=== PATIENT | female | born 1970 | race Caucasian/White ===

== ENCOUNTER 2020-06-27 19:37 | Emergency (ER) | payer OTHER, SELFPAY ==
[2020-06-27 19:54] VITALS: BP 148/65; PULSE 82; RESP 18; TEMP 37.1; O2SAT 100; BMI 22.8
== END 2020-06-27 22:32 | disposition left against medical advice (07) ==
PROVIDERS: Emergency Provider Emergency Medicine
DX: N39.3 Stress incontinence (female) (male) (principal)
CPT/HCPCS: 99281

== ENCOUNTER → 2020-06-29 10:21 | Outpatient (CLI) | payer OTHER, SELFPAY ==
[2020-06-29 11:44] LABS: Add Manual Diff / Slide Review NO; Basophils Absolute Auto 0 /uL (0-100); Basophils Percent Auto 0.6 % (0-2); Eosinophils Absolute Auto 100 /uL (0-450); Hematocrit 25.7 % (36-46); Hemoglobin 8.6 g/dL (12.0-16.0); Lymphocytes Absolute Auto 1200 /uL (1100-4500); Lymphocytes Percent Auto 19.4 % (25-40); Mean Corpuscular HGB Conc 33.6 % (30-36); Mean Corpuscular Hemoglobin 32.5 PG (26-34); Mean Corpuscular Volume 96.9 fL (80-100); Monocytes Absolute Auto 500 /uL (0-900); Monocytes Percent Auto 7.6 % (3-14); Neutrophils Absolute Auto 4300 /uL (1500-7000); Neutrophils Percent Auto 71.4 % (50-75); Platelet Count 412 X10^3/uL (150-400); Red Blood Cell Count 2.65 X10^6/uL (4.0-5.2); Red Cell Distribution Width 13.6 % (11.6-14.8)
[2020-06-29 12:53] LABS: Cancer Antigen 125 19.6 U/mL (0-35)
== END ==
PROVIDERS: Referring Provider Obstetrics & Gynecology; Visit Provider Obstetrics & Gynecology
DX: D64.9 Anemia, unspecified (principal); N92.0 Excessive and frequent menstruation with regular cycle; N83.201 Unspecified ovarian cyst, right side
CPT/HCPCS: 36415; 85025; 86304

== ENCOUNTER → 2020-07-22 08:50 | Outpatient (CLI) | payer OTHER, SELFPAY ==
[2020-07-23 10:45] LABS: COVID19 Sendout Not Detected (Not Detect)
== END ==
PROVIDERS: Visit Provider Physician Assistant
DX: Z11.59 Encounter for screening for other viral diseases (principal)
CPT/HCPCS: 87635

== ENCOUNTER 2020-07-25 06:41 | Day surgery (SDC) | payer OTHER, SELFPAY ==
[2020-07-22 12:57] VITALS: BMI 22.4
[2020-07-25] VITALS (10 sets, daily range): BP systolic 108–126; BP diastolic 55–86; PULSE 75–92; RESP 11–17; TEMP 36.4–37.2; O2SAT 96–100; BMI 22.4
--- NOTE | 2020-07-25 | PATH_ITS ---
[facility] Accession Number: [id number] . 01 Material submitted: . endometrium - ENDOMETRIAL CURETTINGS . 02 Diagnosis: Endometrium, Curettings: Inactive/noncycling endometrium with small inactive glands, pseudodecidualized stroma, and intravascular thrombi, suggestive of exogenous hormone effects. No evidence of neoplasia or hyperplasia. V 07/26/2020 1602 Local . 02 Electronically signed: . Christina Villarreal MD, Pathologist NPI- [id number] . 01 Gross description: . ENDOMETRIAL CURETTINGS: Received in formalin are minute fragments of mucoid and hemorrhagic material measuring 0.6 x 0.6 x 0.3 cm in aggregate. Submitted in toto in 1 cassette. /RON 07/26/2020 0158 Local . 02 Pathologist provided ICD-10: N92.1 . 02 CPT . 904927 Performed at: 01 [facility] [address] [facility], [place], [place] [id number] MD Kory Velazquez MD Phone: [phone] Performed at: [facility] [address] [place], [place] [id number] MD Christina Villarreal MD Phone: [phone]
[2020-07-25] MEDS: LACTATED RINGERS 1,000 ML 42 ML IV (07:31)
--- NOTE | 2020-07-25 07:48 | PM.HP.1 ---
History of Present Illness History of Present Illness Date Patient Seen: 07/25/20 Time Patient Seen: 07:48 Chief complaint: SDC Narrative: Patient is a 49-year-old 6 para 6 who presents for a D&C hysteroscopy with NovaSure endometrial ablation due to menorrhagia Patient History Medical History (Updated 07/25/20 @ 07:32 by Sonia Alberto RN) Anxiety (Acute) Surgical History (Updated 07/25/20 @ 07:32 by Sonia Alberto RN) History of D&C (Acute) Status post tonsillectomy and adenoidectomy (Acute) Status post tubal ligation (Acute) [place] teeth extracted (Acute) Family & Social History Social History: household members spouse,children Tobacco & Substance use: Smoking Status Never smoker alcohol intake current alcohol intake frequency 0-2 drinks per day Substance Use Type does not use Meds Home Medications and Allergies Home Medications Medication Instructions Recorded Confirmed Type medroxyprogesterone 10 mg tablet 10 mg PO .COMPLEX #100 tab 06/28/20 07/22/20 Rx Allergies Allergy/AdvReac Type Severity Reaction Status Date / Time codeine Allergy ITCHING Verified 07/25/20 07:25 dairy AdvReac Mild GI cramps Uncoded 07/25/20 07:25 Exam Vital Signs (past 8 hours): - 07/25/20 07:23 Temperature 99.0 F Pulse Rate 83 Respiratory Rate 16 Blood Pressure 116/69 Pulse Oximetry 100 Oxygen Delivery Method Room Air Narrative Exam Narrative: HEENT: No thyromegaly, no anterior cervical or supraclavicular lymphadenopathy. Lungs:Clear to auscultation bilaterally, no wheezes. Cardiovascular: Regular rate and rhythm, no murmurs, rubs, or gallops. Abdomen: No scars. No hepatosplenomegaly. No masses palpable. External genitalia: Normal Vagina: Normal Cervix: Normal Bimanual exam: 9 Week size uterus. Mobile. Rectal: No masses. Assessment & Plan Assessment & Plan narrative: Assessment: 49-year-old 6 para 6 with menometrorrhagia Plan: D&C hysteroscopy with NovaSure endometrial ablation The risks, benefits, and alternatives to the procedure were explained to the patient. The risks including bleeding, infection, and uterine perforation. She understands these risks and agrees to proceed. A full par Q was held and consent form was signed. COVID-19 COVID-19 status: Negative Result date/Date tested (Pos, Neg/Pending): 07/22/20 Time Spent With Patient Time with patient: 15-24 minutes
--- NOTE | 2020-07-25 07:51 | PM.PREOP ---
Pre-operative Note COVID-19 COVID-19 status: Negative Result date/Date tested (Pos, Neg/Pending): 07/22/20 Interval Note History & Physical reviewed/Exam performed by Physician: Yes Changes to H&P: No H&P completed within 30 days and has changed as indicated here::
--- NOTE | 2020-07-25 08:10 | SUR.OPER ---
Lithotomy on padded OR bed, head on pillow, arms secured on padded arm boards at <90 degrees abduction. Legs secured in padded yellow fins stirrups.
--- NOTE | 2020-07-25 09:06 | PM.GYNOP.1 ---
Operative Date/Time/Diagnoses Date of procedure: 07/25/20 Time of procedure: 09:06 Pre-op diagnosis: Menorrhagia Post-op diagnosis: same Procedure & Clinicians Procedure: Procedures Operation Date: 07/25/20 07:45 Actual Procedures Side Surgeon p Hysteroscopy D&C w/ Endometrial Ablation Amie Lyon MD Indications: Menorrhagia Surgeon: Amie Lyon Anesthesia Type: General (LMA) Operative Notes Findings: Ten week size uterus Very thickened endometrium Both fallopian tube ostia observed Closure Type: not applicable Specimen(s): endometrial curettings Estimated blood loss (mL): 15 Blood products transfused: none Procedure in detail: After informed consent was obtained, the patient was taken to the operating room where she was placed in the dorsal supine position. After adequate LMA general anesthesia was achieved, she was placed in the dorsal lithotomy position, and prepped and draped in the usual sterile fashion. A time-out was performed. A bivalve speculum was placed into the vagina and the anterior lip of the cervix grasped with a single-tooth tenaculum. The cervical os was dilated to the # 8 Hegar dilator. The hysteroscope passed easily into the endometrial cavity. There was a very thickened endometrial lining. Both fallopian tube ostia were observed. The hysteroscope was removed. The resectoscope was assembled. The resectoscope passed easily into the endometrial cavity and with settings at 60 cut and 40 cautery, the thickened areas of endometrium were excised. The resectoscope was removed. The uterus was measured from the internal os to the fundus of the uterus and measured 6.5 cm. This was set on the NovaSure catheter as well as the generator. The catheter passed easily into the endometrial cavity and was opened. The width of the uterus was 4.3 cm. This was set on the generator. The cervix was capped. The cavity assessment was performed but never passed with 3 attempts. The NovaSure catheter was closed and removed from the uterus. A decision was made to do a hand ablation of the uterine cavity. The resectoscope with the ball cautery passed easily into the endometrial cavity. Using settings with cautery at 60 w, the endometrium was cauterized in a circumferential fashion. The resectoscope was removed from the uterus. The single-tooth tenaculum was removed from the anterior lip of the cervix. The bivalve speculum was removed from the vagina. Sponge, lap, and instrument counts were correct x2. The patient tolerated the procedure well, and was taken to PACU in stable condition. 5100 cc of total IV fluids (1000 cc of that was normal saline before the resectoscope was used) and 4300 cc were in the Kar[place]. A large amount of fluid was on the floor and was not able to be counted. 1000 cc of IV fluids were given. Complications: none Post-operative Condition: stable Disposition: PACU Plan for aftercare: Home after recovery
--- NOTE | 2020-07-25 09:24 | SUR.PHASEI ---
To PACU turning to position of comfort, responsive to voice. Denies pain/nausea. Drowsy initially, but woke completely, talkative. Tolerating PO well. Currently, cramping is rated at 1/10. Declines Rx
--- NOTE | 2020-07-25 09:33 | SUR.PHASEII ---
pt arrived to phase II via stretcher. pt sitting up and drinking cranberry juice. pt brought to bedside. pt alert and orientated and rating abdominal cramping 1/10 at this time. pt appears comfortable at this time. Bed in lowest position and call light given to pt.
--- NOTE | 2020-07-25 09:33 | SUR.PHASEI ---
0913 Pt moving in bed prior to transfer, reported feeling dizzy. (passed on to [facility] RN)
--- NOTE | 2020-07-25 12:24 | SUR.PHASEII ---
Mirena IUD inserted at bedside by Dr Lyon. Pt informed that there may be additional bleeding from vagina not to soak a pad in [address] to [address] Lyon with questions or concerns. Pt tolerated PO intake and was able to urinate x2 prior to d/c. Left in w/c with her .
== END 2020-07-25 12:05 | disposition home or self-care (01) ==
PROVIDERS: Referring Provider Obstetrics & Gynecology; Visit Provider Obstetrics & Gynecology
PROC: 0U5B8ZZ Destruction of Endometrium, Via Natural or Artificial Opening Endoscopic (ICD-10-PCS; CPT 58563; principal; 2020-07-25 07:45)
DX: N92.0 Excessive and frequent menstruation with regular cycle (principal); R93.89 Abnormal findings on diagnostic imaging of other specified body structures
CPT/HCPCS: 58563; J1100; J1885; J2405; J2704; J3010

== ENCOUNTER → 2022-10-04 14:58 | Outpatient (CLI) | payer OTHER, SELFPAY ==
[2022-10-06 19:12] LABS: Candida species Negative (Negative); Gardnerella vaginalis Negative (Negative); Trichomoas vaginalis Negative (Negative)
== END ==
PROVIDERS: PCP Student in an Organized Health Care Education/Training Program; Visit Provider Physician Assistant Medical
DX: N89.8 Other specified noninflammatory disorders of vagina (principal)
CPT/HCPCS: 87480; 87510; 87660

== ENCOUNTER → 2022-10-08 14:40 | Outpatient (CLI) | payer OTHER, SELFPAY ==
[2022-10-08 15:06] LABS: Appearance Urine UA CLEAR; Bilirubin Urine UA NEGATIVE (NEGATIVE); Color Urine UA YELLOW; Glucose Urine UA NEGATIVE (Negative); Ketones Urine UA NEGATIVE (NEGATIVE); Leukocyte Esterase Urine UA 1+ (NEGATIVE); Nitrite Urine UA NEGATIVE (Negative); Occult Blood Urine UA TRACE-LYSED (Negative); Protein Urine UA NEGATIVE (Negative); Urobilinogen Urine UA 0.2 E.U./dL (0.2); pH Urine UA 5.5 (4.5-8.0)
[2022-10-08 16:02] LABS: Bacteria Urine None Seen; Culture Indicated Urine Specimen Cultured; RBC Urine 0-1/HPF (0-5/HPF); Squamous Epithelial Cell Urine 1-5 /HPF (0-5/HPF); WBC Urine 0-1/HPF (0-5/HPF)
== END ==
PROVIDERS: PCP Student in an Organized Health Care Education/Training Program; Referring Provider Physician Assistant Medical; Visit Provider Physician Assistant Medical
DX: N39.0 Urinary tract infection, site not specified (principal)
CPT/HCPCS: 81003; 81015; 87077; 87086; 87147